=== PATIENT | male | born 1985 | race Native Hawaiian/Other Pacific Islander ===

== ENCOUNTER 2017-12-20 15:05 | Emergency (ER) | payer OTHER ==
[~2017-12-20] VITALS: Ht 193 cm; Wt 86.6 kg
[2017-12-20 17:00] LABS: PLATELET COUNT 235 K/uL (142-355)
[2017-12-20 17:09] LABS: POTASSIUM 3.9 mmol/L (3.6-5.2)
[2017-12-20 18:40] VITALS: BP 149/95; TEMP 98.1
== END 2017-12-20 18:40 | disposition home or self-care (01) ==
LOC: ED 15:05
DX: J44.9 Chronic obstructive pulmonary disease, unspecified (principal)
CPT/HCPCS: 36415; 80053; 80307; 81000; 85027; 94664; 99283

== ENCOUNTER 2019-01-29 12:04 | Outpatient (CLI) | payer OTHER ==
[2019-01-29 13:41] LABS: POTASSIUM 4.8 mmol/L (3.6-5.2)
[2019-01-29 13:49] LABS: PLATELET COUNT 318 K/uL (142-355)
== END 2019-01-29 19:34 | disposition home or self-care (01) ==
LOC: LABW 12:04
PROVIDERS: Internal Medicine
DX: N18.3 Chronic kidney disease, stage 3 (moderate) (principal)
CPT/HCPCS: 36415; 80053; 81000; 82306; 82330; 82570; 83516; 83735; 83970; 84100; 84155; 85027; 85651; 86038; 86141; 86160; 86255

== ENCOUNTER 2019-02-18 11:15 | Outpatient (CLI) | payer OTHER | END 2019-02-18 17:00 | disposition home or self-care (01) | LOC: US 11:15 | DX: G89.29 Other chronic pain (principal); M54.5 Low back pain; N18.3 Chronic kidney disease, stage 3 (moderate) ==

== ENCOUNTER 2019-09-14 17:58 | Emergency (ER) | payer OTHER ==
[~2019-09-14] VITALS: Ht 193 cm; Wt 86.6 kg
[2019-09-14 19:32] LABS: PLATELET COUNT 254 K/uL (142-355)
[2019-09-14 19:37] LABS: POTASSIUM 3.5 mmol/L (3.6-5.2); SODIUM 140 mmol/L (136-145)
[2019-09-14 19:44] LABS: PARTIAL THROMBOPLASTIN TIME 24.3 SECONDS (24.5-33.6)
[2019-09-14 20:00] VITALS: BP 119/88; TEMP 98.2
== END 2019-09-14 20:00 | disposition home or self-care (01) ==
LOC: ED 17:58
PROVIDERS: Hospitalist
DX: F19.10 Other psychoactive substance abuse, uncomplicated (principal)
CPT/HCPCS: 80053; 80307; 80320; 81000; 84484; 85027; 85610; 85730; 93005; 99283

== ENCOUNTER 2020-04-13 13:27 | Outpatient (CLI) | payer OTHER | END 2020-04-13 20:16 | disposition home or self-care (01) | LOC: CT 13:27 | PROVIDERS: ATTEND Internal Medicine Sleep Medicine | DX: J96.11 Chronic respiratory failure with hypoxia (principal) ==

== ENCOUNTER 2020-05-19 16:11 | Outpatient (CLI) | payer OTHER ==
[2020-05-19 16:24] LABS: PLATELET COUNT 239 K/uL (142-355)
== END 2020-05-19 20:35 | disposition home or self-care (01) ==
LOC: LABW 16:11
PROVIDERS: ATTEND Internal Medicine Sleep Medicine
DX: J45.50 Severe persistent asthma, uncomplicated (principal)
CPT/HCPCS: 36415; 82785; 85027; 86003

== ENCOUNTER 2021-08-07 23:05 | Emergency (ER) | payer OTHER ==
[~2021-08-07] VITALS: Ht 193 cm; Wt 93.0 kg
[2021-08-08 00:18] LABS: POTASSIUM 4.5 mmol/L (3.6-5.2)
[2021-08-08 00:33] LABS: PARTIAL THROMBOPLASTIN TIME 26.3 SECONDS (24.5-33.6)
[2021-08-08 00:55] VITALS: BP 120/89; TEMP 98.3
[2021-08-08 01:00] LABS: PLATELET COUNT 366 K/uL (142-355)
== END 2021-08-08 00:55 | disposition still patient (30) ==
LOC: ED 23:05
PROVIDERS: Hospitalist
DX: R07.89 Other chest pain (principal); J44.9 Chronic obstructive pulmonary disease, unspecified; R09.1 Pleurisy; Z11.52 Encounter for screening for COVID-19
CPT/HCPCS: 36415; 80053; 82550; 83880; 84484; 85027; 85379; 85610; 85730; 87635; 93005; 96375; 99284; J1885; J2405; J2930; U0003